=== PATIENT | female | born 1945 | race Two or more races ===

== ENCOUNTER 2017-04-15 13:28 | Inpatient (IN) | payer OTHER, MEDICAID ==
[~2017-04-15] VITALS: Ht 157.5 cm; Wt 83.0 kg
[2017-04-15 15:16] LABS: Potassium 3.9 mmol/L (3.5-5.1)
[2017-04-15 15:20] LABS: Albumin 3.2 g/dL (3.4-5.0); BUN/Creatinine Ratio 17.3; Basophils # (auto) 0 uL; Basophils % (auto) 0.5 % (0.0-2.0); CONDITION Y; Calcium 8.3 mg/dL (8.5-10.1); DEFINITIVE SEE PRINTOUT; Eosinophils # (auto) 0.1 uL; Hematocrit 31.8 % (36.0-46.0); Hemoglobin 10.1 g/dL (12.2-16.2); Lymphocytes # (auto) 1.6 uL; Lymphocytes % (auto) 20.3 % (10.0-50.0); Mean Corpuscular Hemoglobin 22.9 pg (28.0-32.0); Mean Corpuscular Hgb Conc. 31.9 g/dL (32.0-36.0); Mean Platelet Volume 11.4 fL (7.4-10.4); Monocytes # (auto) 0.6 uL; Monocytes % (auto) 7.7 % (0.0-12.0); Neutrophils # (auto) 5.4 uL; Neutrophils % (auto) 70.5 % (37.0-80.0); Platelet Count (auto) 269 10^3/uL (140-450); Red Cell Distribution Width 18.5 % (11.6-16.0); SUSPECT SEE PRINTOUT; White Blood Cell 7.7 10^3/uL (4.4-10.8)
[2017-04-15 15:23] LABS: Amylase 125 U/L (25-115); Bilirubin, Total 0.4 mg/dL (0.2-1.0); Total Protein 7.5 g/dL (6.4-8.2)
[2017-04-15] MEDS ORDERED: SODIUM CHLORIDE 0.9% 500 ML IVB ONE (17:42)
[2017-04-15 17:57] LABS: Giant Platelets Few; Hypochromia Moderate; Platelet Estimate Adequate
[2017-04-15 18:32] LABS: INR 0.95 (0.9-1.15); Partial Thromboplastin Time 26.1 sec (22.64-33.71); Prothrombin Time 10.3 sec (9.37-12.3)
[2017-04-15 18:39] LABS: Magnesium 2.5 mg/dL (1.6-2.6)
[2017-04-15 19:35] LABS: Urine Bilirubin Negative (Negative); Urine Blood Negative /uL (Negative); Urine Color Yellow (Yellow); Urine Glucose Normal (Normal); Urine Ketone 1+ (Negative); Urine Nitrite Negative (Negative); Urine RBC <1 /hpf (0 - 4); Urine Squamous Epithelial Cell FEW /hpf (<5); Urine Urobilinogen Normal (Negative)
[2017-04-15] MEDS ORDERED: ONDANSETRON HCL 4 MG/2 ML VIAL IV PRN (21:45)
[2017-04-15] MEDS ORDERED: MORPHINE SULF INJ 2 MG/ML SYRINGE 1ML IV PRN ×2 (21:45)
[2017-04-15] MEDS ORDERED: NITROGLYCERIN 0.4 MG SL TAB SL PRN (21:45)
[2017-04-15] MEDS ORDERED: LACTULOSE 20Gm/30ML SOLN PO PRN (21:45)
[2017-04-15] MEDS ORDERED: ATORVASTATIN 20 MG TAB PO SCH (22:00)
[2017-04-15] MEDS: FAMOTIDINE (10MG/ML) 2ML VL IV SCH (22:31)
[2017-04-16] VITALS (7 sets, daily range): BP systolic 138–164; BP diastolic 62–77
[2017-04-16 06:55] LABS: Basophils # (auto) 0 uL; Basophils % (auto) 0.5 % (0.0-2.0); CONDITION Y; DEFINITIVE SEE PRINTOUT; Eosinophils # (auto) 0.1 uL; Eosinophils % (auto) 1.5 % (0.0-7.0); Hemoglobin 9.9 g/dL (12.2-16.2); Lymphocytes # (auto) 1.9 uL; Lymphocytes % (auto) 32.3 % (10.0-50.0); Mean Corpuscular Hemoglobin 22.8 pg (28.0-32.0); Mean Corpuscular Hgb Conc. 31.9 g/dL (32.0-36.0); Mean Corpuscular Volume 71.4 fL (80.0-100.0); Mean Platelet Volume 11.5 fL (7.4-10.4); Monocytes # (auto) 0.5 uL; Monocytes % (auto) 8.6 % (0.0-12.0); Neutrophils # (auto) 3.3 uL; Neutrophils % (auto) 57.1 % (37.0-80.0); Platelet Count (auto) 250 10^3/uL (140-450); Red Cell Distribution Width 18.5 % (11.6-16.0); SUSPECT SEE PRINTOUT; White Blood Cell 5.8 10^3/uL (4.4-10.8)
[2017-04-16 07:29] LABS: Albumin 3.1 g/dL (3.4-5.0); BUN/Creatinine Ratio 17.7; Bilirubin, Total 0.6 mg/dL (0.2-1.0); Calcium 8.7 mg/dL (8.5-10.1); Potassium 3.6 mmol/L (3.5-5.1); Total Protein 7.2 g/dL (6.4-8.2)
[2017-04-16] MEDS: FERROUS SULFATE 325 MG TAB PO SCH ×2 (08:56→13:05)
[2017-04-16 09:35] LABS: Platelet Estimate Adequate
[2017-04-16 09:39] LABS: Hypochromia Moderate; Microcytosis Moderate; Ovalocytes FEW
[2017-04-16] MEDS ORDERED: ENOXAPARIN SOD 40 MG/0.4 ML SYRINGE SC SCH (10:00)
[2017-04-16] MEDS ORDERED: amLODIPine BESYLATE 5 MG TAB PO SCH (10:00)
[2017-04-16] MEDS ORDERED: LISINOPRIL 20 MG TAB PO SCH (10:00)
[2017-04-16] MEDS ORDERED: ASPirin 81 mg TAB PO ONE (10:15)
[2017-04-16] MEDS ORDERED: cloNIDine HCL 0.1 MG TAB PO PRN (10:15)
[2017-04-16] MEDS ORDERED: METOPROLOL SUCCINATE XL 50 MG TAB PO ONE (10:15)
[2017-04-16] MEDS: FAMOTIDINE (10MG/ML) 2ML VL IV SCH (10:39)
[2017-04-17] MEDS ORDERED: ASPirin 81 mg TAB PO SCH (10:00)
[2017-04-17] MEDS ORDERED: METOPROLOL SUCCINATE XL 50 MG TAB PO SCH (10:00)
== END 2017-04-16 16:25 | disposition home or self-care (01) | DRG 440 ==
LOC: ER 13:28 → TELE 13:29 → DOU IN ICU 04-16 05:03
PROVIDERS: ADMIT Family Medicine; ATTEND Internal Medicine Geriatric Medicine
DX: K85.30 Drug induced acute pancreatitis without necrosis or infection (principal); I10 Essential (primary) hypertension; E66.9 Obesity, unspecified; D64.9 Anemia, unspecified; T46.6X5A Adverse effect of antihyperlipidemic and antiarteriosclerotic drugs, initial encounter; T46.4X5A Adverse effect of angiotensin-converting-enzyme inhibitors, initial encounter; Y92.89 Other specified places as the place of occurrence of the external cause; Z90.49 Acquired absence of other specified parts of digestive tract; Z68.33 Body mass index [BMI] 33.0-33.9, adult
CPT/HCPCS: 36415; 70450; 71010; 74176; 80053; 80061; 81001; 82150; 82962; 83690; 83735; 84484; 85025; 85610; 85730; 87081; 93005; 94761; J3490

== ENCOUNTER 2017-11-13 19:06 | Inpatient (IN) | payer OTHER, MEDICAID ==
[~2017-11-13] VITALS: Ht 154.9 cm; Wt 81.4 kg
[2017-11-13 19:59] LABS: Basophils # (auto) 0.1 uL; Eosinophils # (auto) 0.1 uL; Hemoglobin 8.7 g/dL (12.2-16.2); Lymphocytes # (auto) 1.9 uL; Monocytes # (auto) 0.7 uL; Monocytes % (auto) 6.7 % (0.0-12.0); Nucleated Red Blood Cells % 0.1 %
[2017-11-13 20:05] LABS: Basophils % (auto) 0.7 % (0.0-2.0); Eosinophils % (auto) 1.4 % (0.0-7.0); Lymphocytes % (auto) 19.2 % (10.0-50.0); Neutrophils # (auto) 7.2 uL; Red Blood Cells 4.49 10^6/uL (4.0-5.20)
[2017-11-13 20:06] LABS: Hematocrit 29.1 % (36.0-46.0); Mean Corpuscular Hemoglobin 19.5 pg (28.0-32.0); Mean Corpuscular Volume 64.9 fL (80.0-100.0); Platelet Count (auto) 270 10^3/uL (140-450); Red Cell Distribution Width 19.4 % (11.8-14.3)
[2017-11-13 20:32] LABS: Alanine Aminotransferase 84 U/L (13-56); Albumin 3.3 g/dL (3.4-5.0); Alkaline Phosphatase 123 U/L (45-117); Anion Gap 9 (5-15); Aspartate Aminotransferase 120 U/L (15-37); BUN/Creatinine Ratio 28.4; Bilirubin, Total 0.2 mg/dL (0.2-1.0); Blood Urea Nitrogen 21 mg/dL (7-18); Calcium 8.5 mg/dL (8.5-10.1); Carbon Dioxide 24 mmol/L (21-32); Chloride 103 mmol/L (98-107); GFR African American 99 mL/min; GFR Non-African American 82 mL/min; Glucose 127 mg/dL (74-106); Magnesium 2.7 mg/dL (1.6-2.6); Potassium 3.9 mmol/L (3.5-5.1); Sodium 136 mmol/L (136-145); Total Protein 8.1 g/dL (6.4-8.2)
[2017-11-14] MEDS ORDERED: TEMAZEPAM 15 MG CAP PO PRN (06:45)
[2017-11-14] MEDS ORDERED: ONDANSETRON HCL 4 MG/2 ML VIAL IV PRN (06:45)
[2017-11-14] MEDS ORDERED: ACETAMINOPHEN 325 MG TAB PO PRN (06:45)
[2017-11-14] MEDS ORDERED: MECLIZINE HCL 25 MG TAB PO PRN (06:45)
[2017-11-14 09:00] VITALS: BP 140/52
[2017-11-14] MEDS ORDERED: FAMOTIDINE 20 MG TAB PO SCH (10:00)
[2017-11-14] MEDS ORDERED: METOPROLOL SUCCINATE XL 50 MG TAB PO SCH (10:00)
[2017-11-14] MEDS ORDERED: ENOXAPARIN SOD 40 MG/0.4 ML SYRINGE SC SCH (10:00)
[2017-11-14 11:53] VITALS: BP 145/67
[2017-11-14] MEDS ORDERED: AMLO5TAB2 PO (12:15)
[2017-11-14] MEDS ORDERED: METO25TA62 PO (12:15)
[2017-11-14] MEDS ORDERED: LISI-646 PO (12:15)
[2017-11-14 15:20] VITALS: BP 145/67
== END 2017-11-14 16:25 | disposition home or self-care (01) | DRG 305 ==
LOC: ER 19:06 → OVERFLOW 19:07 → EAST 11-14 09:00
PROVIDERS: ADMIT Nurse Practitioner; ATTEND Nurse Practitioner
DX: I10 Essential (primary) hypertension (principal); I67.2 Cerebral atherosclerosis; E78.5 Hyperlipidemia, unspecified; Z79.899 Other long term (current) drug therapy; Z88.6 Allergy status to analgesic agent; Z90.49 Acquired absence of other specified parts of digestive tract
CPT/HCPCS: 36415; 70450; 71045; 80053; 83735; 84484; 85025; 93005

== ENCOUNTER 2018-03-15 09:08 | Inpatient (IN) | payer OTHER, MEDICAID ==
[~2018-03-15] VITALS: Ht 160 cm; Wt 84.0 kg
[~2018-03-15 09:08] MED LIST: AMLO5TAB2 PO; LISI-646 PO; METO25TA62 PO
[2018-03-15] MEDS ORDERED: DOPamine 1600MCG/ML D5W 250 ML IV SCH (09:43)
[2018-03-15] MEDS ORDERED: SODIUM CHLORIDE 0.9% 1,000 ML IV ONE (09:43)
[2018-03-15] MEDS ORDERED: DOPamine 3200MCG/ML 250 ML IV SCH (09:51)
[2018-03-15 09:56] LABS: Eosinophils # (auto) 0.1 uL; Monocytes # (auto) 0.5 uL; Red Blood Cells 5.01 10^6/uL (4.0-5.20); White Blood Cell 8.2 10^3/uL (4.4-10.8)
[2018-03-15 09:58] LABS: Basophils # (auto) 0.1 uL; Basophils % (auto) 0.7 % (0.0-2.0); Hematocrit 33.9 % (36.0-46.0); Lymphocytes # (auto) 1.9 uL; Mean Corpuscular Hgb Conc. 29.7 g/dL (32.0-36.0); Mean Corpuscular Volume 67.5 fL (80.0-100.0); Monocytes % (auto) 6.4 % (0.0-12.0); Neutrophils # (auto) 5.6 uL; Neutrophils % (auto) 68.9 % (37.0-80.0); Platelet Count (auto) 211 10^3/uL (140-450)
[2018-03-15 10:03] LABS: Red Cell Distribution Width 24.2 % (11.8-14.3)
[2018-03-15 10:15] LABS: Alanine Aminotransferase 30 U/L (13-56); Albumin 3.2 g/dL (3.4-5.0); Alkaline Phosphatase 90 U/L (45-117); Anion Gap 8 (5-15); Aspartate Aminotransferase 34 U/L (15-37); Bilirubin, Total 0.4 mg/dL (0.2-1.0); Blood Urea Nitrogen 17 mg/dL (7-18); Calcium 8.1 mg/dL (8.5-10.1); Carbon Dioxide 23 mmol/L (21-32); Chloride 110 mmol/L (98-107); GFR African American 109 mL/min; GFR Non-African American 90 mL/min; Glucose 137 mg/dL (74-106); Potassium 3.6 mmol/L (3.5-5.1); Sodium 141 mmol/L (136-145); Total Protein 7.2 g/dL (6.4-8.2)
[2018-03-15] MEDS ORDERED: LIDOCAINE 2% (LOCAL ANESTH.) PF 5ml SDV ONE (10:42)
[2018-03-15] MEDS ORDERED: IOHEXOL 350 MG/ML 100ML IJ ONE (10:42)
[2018-03-15 11:04] LABS: INR 0.93 (0.9-1.15)
[2018-03-15 11:35] LABS: Urine Bacteria NONE SEEN /hpf (None Seen); Urine Blood Negative /uL (Negative); Urine Mucus FEW (None Seen); Urine Specific Gravity 1.009 (1.001-1.035); Urine WBC 1 /hpf (0 - 5)
[2018-03-15] MEDS ORDERED: MIDAZOLAM HCL 1MG/1ML-2 ML VIAL ONE (13:05)
[2018-03-15] MEDS ORDERED: fentaNYL CITRATE 100 MCG/2 ML VL ONE (13:05)
[2018-03-15] MEDS ORDERED: VANCOMYCIN HCL 1000 MG VL ONE (13:05)
[2018-03-15] MEDS ORDERED: VANCOMYCIN 1GM/250ML 250 ML IV ONE (13:06)
[2018-03-15] MEDS ORDERED: MORPHINE SULF INJ 2 MG/ML SYRINGE 1ML IV PRN (15:30)
[2018-03-15] MEDS ORDERED: NITROGLYCERIN 0.4 MG SL TAB SL PRN (15:30)
[2018-03-15 17:09] VITALS: BP 156/76
[2018-03-15 22:00] VITALS: BP 157/69
[2018-03-16] MEDS ORDERED: VANCOMYCIN 1GM/250ML 250 ML IV SCH ×2 (01:00→10:00)
[2018-03-16 05:00] VITALS: BP 174/70
[2018-03-16] MEDS ORDERED: LIDOCAINE 2% (LOCAL ANESTH.) PF 5ml SDV ONE (07:19)
[2018-03-16] MEDS ORDERED: IODIXANOL 320MG/ML 100ML BTL IV ONE (07:20)
[2018-03-16 08:57] VITALS: BP 162/76
[2018-03-16] MEDS ORDERED: cloNIDine HCL 0.1 MG TAB PO PRN (10:15)
[2018-03-16] MEDS ORDERED: METOPROLOL SUCCINATE XL 50 MG TAB PO ONE (10:15)
[2018-03-16] MEDS ORDERED: LISINOPRIL 20 MG TAB PO ONE (10:15)
[2018-03-16 10:41] VITALS: BP 158/74
[2018-03-17] MEDS ORDERED: LISINOPRIL 20 MG TAB PO SCH (10:00)
[2018-03-17] MEDS ORDERED: METOPROLOL SUCCINATE XL 50 MG TAB PO SCH (10:00)
== END 2018-03-16 11:28 | disposition home or self-care (01) | DRG 243 ==
LOC: EDBD 09:08 → ER 09:08 → EDUNIT# 09:08 → CATH 09:55 → TELE 10:55 → TELE-CENTR 16:46
PROVIDERS: ADMIT Internal Medicine; ATTEND Internal Medicine Geriatric Medicine
PROC: 0JH606Z Insertion of Pacemaker, Dual Chamber into Chest Subcutaneous Tissue and Fascia, Open Approach (ICD-10-PCS; principal; 2018-03-15)
PROC: 02H63JZ Insertion of Pacemaker Lead into Right Atrium, Percutaneous Approach (ICD-10-PCS; 2018-03-15)
PROC: 02HK3JZ Insertion of Pacemaker Lead into Right Ventricle, Percutaneous Approach (ICD-10-PCS; 2018-03-15)
DX: I49.5 Sick sinus syndrome (principal); I44.2 Atrioventricular block, complete; D64.9 Anemia, unspecified; I10 Essential (primary) hypertension; I45.10 Unspecified right bundle-branch block; E78.5 Hyperlipidemia, unspecified; I70.0 Atherosclerosis of aorta; Z88.5 Allergy status to narcotic agent; Z83.3 Family history of diabetes mellitus; Z82.3 Family history of stroke; Z88.1 Allergy status to other antibiotic agents
CPT/HCPCS: 36415; 70450; 71045; 72125; 80053; 81001; 83880; 84484; 85025; 85610; 85730; 93306; 99152; 99291; C1785; J1265; J2250; Q9967

== ENCOUNTER → 2018-05-31 | Outpatient (CLI) | payer MEDICARE, MEDICAID ==
[~2018-05-31] MED LIST changes: +ADENOSINE 69 MG in GIVE UN-DILUTED 0 ML IV ONE; +ADENOSINE 90 MG/30 ML INJ IV ONE; +AMLO5TAB13 PO; -AMLO5TAB2 PO
== END | disposition home or self-care (01) ==
LOC: Rad HDHVI 09:07
PROVIDERS: ATTEND Internal Medicine
DX: I49.5 Sick sinus syndrome (principal); I10 Essential (primary) hypertension; Z95.0 Presence of cardiac pacemaker
CPT/HCPCS: 78452; 93005; 96374; 96375; A9500; J0153

== ENCOUNTER → 2018-07-27 | Outpatient (CLI) | payer MEDICARE, MEDICAID ==
[~2018-07-27] MED LIST changes: -ADENOSINE 69 MG in GIVE UN-DILUTED 0 ML IV ONE; -ADENOSINE 90 MG/30 ML INJ IV ONE
== END | disposition home or self-care (01) ==
LOC: Rad HDHVI 13:57
PROVIDERS: ATTEND Internal Medicine
DX: R42 Dizziness and giddiness (principal)
CPT/HCPCS: 93880

== ENCOUNTER → 2019-02-14 | Outpatient (CLI) | payer MEDICARE, MEDICAID ==
[~2019-02-14] MED LIST changes: -AMLO5TAB13 PO; +AMLO5TAB15 PO
[2019-02-14 12:29] LABS: Urine Blood Negative /uL (Negative); Urine Specific Gravity 1.017 (1.001-1.035)
[2019-02-14 13:05] LABS: Basophils # (auto) 0 uL; Basophils % (auto) 0.7 % (0.0-2.0); Eosinophils # (auto) 0.1 uL; Eosinophils % (auto) 1.3 % (0.0-7.0); Hemoglobin 12.3 g/dL (12.2-16.2); Lymphocytes # (auto) 1.2 uL; Lymphocytes % (auto) 24.9 % (10.0-50.0); Mean Corpuscular Hemoglobin 27.8 pg (28.0-32.0); Mean Corpuscular Hgb Conc. 33.1 g/dL (32.0-36.0); Mean Corpuscular Volume 83.9 fL (80.0-100.0); Monocytes # (auto) 0.4 uL; Monocytes % (auto) 8.3 % (0.0-12.0); Neutrophils # (auto) 3.2 uL; Neutrophils % (auto) 64.8 % (37.0-80.0); Platelet Count (auto) 189 10^3/uL (140-450); Red Blood Cells 4.41 10^6/uL (4.0-5.20); Red Cell Distribution Width 17.9 % (11.8-14.3)
[2019-02-14 13:17] LABS: Free T4 (Free Thyroxine) 0.92 ng/dL (0.89-1.76)
[2019-02-14 13:29] LABS: Albumin 3.4 g/dL (3.4-5.0); BUN/Creatinine Ratio 21.9; Bilirubin, Total 0.4 mg/dL (0.2-1.0); Calcium 9.1 mg/dL (8.5-10.1); Total Protein 7.4 g/dL (6.4-8.2)
== END | disposition home or self-care (01) ==
LOC: LAB 08:44
PROVIDERS: ATTEND Internal Medicine
DX: N39.0 Urinary tract infection, site not specified (principal); E03.9 Hypothyroidism, unspecified; E55.9 Vitamin D deficiency, unspecified; D51.9 Vitamin B12 deficiency anemia, unspecified; Z79.899 Other long term (current) drug therapy
CPT/HCPCS: 36415; 80053; 80061; 81003; 82306; 82607; 83036; 84439; 84443; 85025

== ENCOUNTER → 2019-03-28 | Outpatient (CLI) | payer MEDICARE, MEDICAID ==
[~2019-03-28] MED LIST changes: +AMLO5TAB13 PO; -AMLO5TAB15 PO
[2019-03-28 16:33] LABS: Albumin 3.3 g/dL (3.4-5.0); Calcium 8.9 mg/dL (8.5-10.1)
[2019-03-28 16:37] LABS: Bilirubin, Total 0.3 mg/dL (0.2-1.0); Total Protein 7.6 g/dL (6.4-8.2)
== END | disposition home or self-care (01) ==
LOC: LAB 13:08
PROVIDERS: ATTEND Internal Medicine
DX: I10 Essential (primary) hypertension (principal)
CPT/HCPCS: 36415; 80053

== ENCOUNTER → 2020-02-24 | Outpatient (CLI) | payer MEDICARE, MEDICAID ==
[~2020-02-24] MED LIST changes: -AMLO5TAB13 PO; +AMLO5TAB15 PO; -METO25TA62 PO; +METO25TA93 PO
== END | disposition home or self-care (01) ==
LOC: Rad HDHVI 15:05
PROVIDERS: ATTEND Internal Medicine
DX: I08.1 Rheumatic disorders of both mitral and tricuspid valves (principal); E78.5 Hyperlipidemia, unspecified; I10 Essential (primary) hypertension; Z95.0 Presence of cardiac pacemaker
CPT/HCPCS: 93306

== ENCOUNTER → 2020-02-29 | Outpatient (CLI) | payer MEDICARE, MEDICAID ==
[2020-02-29 12:25] LABS: Eosinophils # (auto) 0.1 10 ^3/uL (0-0.8); Hemoglobin 10.3 g/dL (12.2-16.2); Monocytes # (auto) 0.4 10 ^3/uL (0-1.3)
[2020-02-29 12:29] LABS: Basophils # (auto) 0 10 ^3/uL (0-0.2); Basophils % (auto) 0.9 % (0.0-2.0); Eosinophils % (auto) 1.9 % (0.0-7.0); Hematocrit 33.6 % (36.0-46.0); Lymphocytes # (auto) 1.4 10 ^3/uL (0.4-5.4); Lymphocytes % (auto) 28.5 % (10.0-50.0); Mean Corpuscular Hemoglobin 23.4 pg (28.0-32.0); Mean Corpuscular Hgb Conc. 30.6 g/dL (32.0-36.0); Mean Corpuscular Volume 76.5 fL (80.0-100.0); Monocytes % (auto) 8.1 % (0.0-12.0); Neutrophils # (auto) 2.9 10 ^3/uL (1.6-8.6); Neutrophils % (auto) 60.6 % (37.0-80.0); Nucleated Red Blood Cells % 0.2 %; Platelet Count (auto) 192 10^3/uL (140-450); Red Cell Distribution Width 19.2 % (11.8-14.3); White Blood Cell 4.8 10^3/uL (4.4-10.8)
[2020-02-29 12:31] LABS: Urine Blood TRACE /uL (Negative)
[2020-02-29 12:53] LABS: Free T4 (Free Thyroxine) 1.08 ng/dL (0.89-1.76)
[2020-02-29 12:55] LABS: Albumin 3.4 g/dL (3.4-5.0); BUN/Creatinine Ratio 18.4; Bilirubin, Total 0.3 mg/dL (0.2-1.0); Calcium 9.1 mg/dL (8.5-10.1); Total Protein 7.6 g/dL (6.4-8.2)
== END | disposition home or self-care (01) ==
LOC: LAB 08:08
PROVIDERS: ATTEND Internal Medicine
DX: E03.9 Hypothyroidism, unspecified (principal); K90.9 Intestinal malabsorption, unspecified; N39.0 Urinary tract infection, site not specified; D51.9 Vitamin B12 deficiency anemia, unspecified; Z79.899 Other long term (current) drug therapy; Z00.00 Encounter for general adult medical examination without abnormal findings
CPT/HCPCS: 36415; 80053; 80061; 81003; 82306; 82607; 83036; 84439; 84443; 85025

== ENCOUNTER → 2020-03-05 | Outpatient (CLI) | payer MEDICARE, MEDICAID ==
[2020-03-05 12:01] LABS: Urine Bacteria NONE SEEN /hpf (None Seen); Urine Blood TRACE /uL (Negative); Urine Hyaline Cast FEW /lpf (0 - 2); Urine Mucus FEW (None Seen); Urine Specific Gravity 1.022 (1.001-1.035); Urine WBC 1 /hpf (0 - 5)
== END | disposition home or self-care (01) ==
LOC: LAB 08:14
PROVIDERS: ATTEND Internal Medicine
DX: N39.0 Urinary tract infection, site not specified (principal)
CPT/HCPCS: 81001

== ENCOUNTER → 2020-03-19 | Outpatient (CLI) | payer MEDICARE, MEDICAID ==
[~2020-03-19] VITALS: Ht 160 cm; Wt 83.0 kg
[~2020-03-19] MED LIST changes: +ADENOSINE 70 MG in GIVE UN-DILUTED 0 ML IV ONE; +ADENOSINE 90 MG/30 ML INJ IV ONE; +HYDR12.56 PO; +IRBE150T49 PO; +METO-169 PO
== END | disposition home or self-care (01) ==
LOC: Rad HDHVI 12:52
PROVIDERS: ATTEND Internal Medicine
DX: I10 Essential (primary) hypertension (principal); I25.2 Old myocardial infarction; E78.00 Pure hypercholesterolemia, unspecified; Z95.0 Presence of cardiac pacemaker; Z82.49 Family history of ischemic heart disease and other diseases of the circulatory system
CPT/HCPCS: 78452; 93005; 96374; 96375; A9500; J0153

== ENCOUNTER → 2020-04-24 | Outpatient (CLI) | payer MEDICARE, MEDICAID ==
[~2020-04-24] MED LIST changes: -ADENOSINE 70 MG in GIVE UN-DILUTED 0 ML IV ONE; -ADENOSINE 90 MG/30 ML INJ IV ONE; +IOHEXOL 350 MG/ML 100ML IJ ONE; +READI-CAT 2 (BARIUM SULF)(VANILLA SMOOTHIE) 450ML ONE
[2020-04-24 10:55] VITALS: BP 164/59
--- NOTE | 2020-04-24 10:55 | NUR ---
CLINIC PT ARRIVED TO THE [facility]IN[facility] FROM BACK OFFICE WITH MD ORDERS FOR CT ABD/PEL IV AND ORAL., FOR OCCASIONAL ABD PAIN. PT IS FAROESE SPEAKING. 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 A/OX4, AMBULATORY. BREATHING IS EVEN AND UNLABORED.
--- NOTE | 2020-04-24 11:08 | NUR ---
IV insertion IV access obtained, via clean sterile technique by inserting 22 gauge catheter at after 3 attempt(s). IV secured properly. No trauma to site. Patient tolerated procedure well. LABS DRAWN AND SENT NOTE 2 UNSUCCESSFUL TRIES BY PRISCILA CALLEJAS INSERTED BY ISADORA MONTES
--- NOTE | 2020-04-24 12:20 | NUR ---
IV removal IV DC'd with sterile technique, catheter fully intact. Pressure dressing applied to site. Patient tolerated procedure well. Discharged with aftercare instructions per MD. NOTE: REMOVED BY PRISCILA CALLEJAS
[2020-04-24 12:26] VITALS: BP 163/54
--- NOTE | 2020-04-24 12:26 | NUR ---
Discharge Instructions See e-MAR for any mediations given with this visit. Patient education given on disease process. Patient verbalized understanding. Previous labs reviewed. Patient discharged in stable condition with after care instructions and follow up appointment. PT TOLD TO INCREASE FLUID INTAKE FOR THE NEXT 24HRS.
== END | disposition home or self-care (01) ==
LOC: Rad HDHVI 10:35
PROVIDERS: ATTEND Internal Medicine
DX: K57.30 Diverticulosis of large intestine without perforation or abscess without bleeding (principal); R94.4 Abnormal results of kidney function studies; R10.9 Unspecified abdominal pain; K44.9 Diaphragmatic hernia without obstruction or gangrene; K40.30 Unilateral inguinal hernia, with obstruction, without gangrene, not specified as recurrent; I70.8 Atherosclerosis of other arteries
CPT/HCPCS: 36415; 74177; 82565; G0463; Q9967

== ENCOUNTER 2020-05-31 08:32 | Day surgery (SDC) | payer MEDICARE, MEDICAID ==
[2020-05-25 11:10] LABS: Basophils # (auto) 0 10 ^3/uL (0-0.2); Basophils % (auto) 0.9 % (0.0-2.0); Eosinophils # (auto) 0.1 10 ^3/uL (0-0.8); Hematocrit 34.6 % (36.0-46.0); Monocytes # (auto) 0.4 10 ^3/uL (0-1.3); Neutrophils # (auto) 2.5 10 ^3/uL (1.6-8.6); Nucleated Red Blood Cells % 0.1 %; Red Cell Distribution Width 18.4 % (11.8-14.3)
[2020-05-25 11:11] LABS: Eosinophils % (auto) 1.3 % (0.0-7.0); Hemoglobin 10.5 g/dL (12.2-16.2); Lymphocytes # (auto) 1.5 10 ^3/uL (0.4-5.4); Lymphocytes % (auto) 32.5 % (10.0-50.0); Mean Corpuscular Hemoglobin 21.9 pg (28.0-32.0); Mean Corpuscular Hgb Conc. 30.5 g/dL (32.0-36.0); Monocytes % (auto) 8.5 % (0.0-12.0); Neutrophils % (auto) 56.8 % (37.0-80.0); Platelet Count (auto) 234 10^3/uL (140-450); White Blood Cell 4.5 10^3/uL (4.4-10.8)
[2020-05-25 11:13] LABS: INR 0.94 (0.9-1.15); Partial Thromboplastin Time 21.1 sec (23.0-31.2)
[~2020-05-31] VITALS: Ht 157.5 cm; Wt 83.5 kg
[~2020-05-31 08:32] MED LIST changes: -AMLO5TAB15 PO; -IOHEXOL 350 MG/ML 100ML IJ ONE; -LISI-646 PO; -METO25TA93 PO; -READI-CAT 2 (BARIUM SULF)(VANILLA SMOOTHIE) 450ML ONE
[2020-05-31] MEDS ORDERED: LIDOCAINE VISCOUS 2% 15ML UD ONE (09:17)
[2020-05-31] MEDS ORDERED: NALOXONE HCL 0.4 MG/ML VIAL ONE (09:17)
[2020-05-31] MEDS ORDERED: FLUMAZENIL 0.1 MG/ML INJ 10ML MDV IV ONE (09:17)
[2020-05-31] MEDS ORDERED: SODIUM CHLORIDE LOCK 10 ML ONE (09:17)
[2020-05-31] MEDS ORDERED: MIDAZOLAM HCL 5 MG/ML-1ML VIAL ONE (09:17)
[2020-05-31] MEDS ORDERED: diphenhdrAMINE HCL 50 MG/1 ML VL ONE (09:18)
[2020-05-31] MEDS ORDERED: fentaNYL CITRATE 100 MCG/2 ML VL ONE (09:18)
[2020-05-31 10:31] VITALS: BP 125/71
== END 2020-05-31 10:43 | disposition home or self-care (01) ==
LOC: GI 08:32
PROVIDERS: ATTEND Internal Medicine Gastroenterology
DX: R10.11 Right upper quadrant pain (principal); K29.50 Unspecified chronic gastritis without bleeding; K29.80 Duodenitis without bleeding; K44.9 Diaphragmatic hernia without obstruction or gangrene; E66.9 Obesity, unspecified; Z79.899 Other long term (current) drug therapy; Z88.5 Allergy status to narcotic agent; Z96.89 Presence of other specified functional implants; Z20.828 Contact with and (suspected) exposure to other viral communicable diseases; Z88.1 Allergy status to other antibiotic agents; Z68.33 Body mass index [BMI] 33.0-33.9, adult
CPT/HCPCS: 36415; 43239; 85025; 85610; 85730; 88305; 88342; J2250; J3010; J7030; U0003

== ENCOUNTER → 2020-10-03 | Outpatient (CLI) | payer MEDICARE, MEDICAID ==
[2020-10-03 11:11] LABS: Basophils # (auto) 0 10 ^3/uL (0-0.2); Eosinophils # (auto) 0.1 10 ^3/uL (0-0.8); Mean Corpuscular Hemoglobin 19.9 pg (28.0-32.0); Monocytes # (auto) 0.4 10 ^3/uL (0-1.3); Neutrophils # (auto) 2.6 10 ^3/uL (1.6-8.6); Nucleated Red Blood Cells % 0.1 %; Urine Blood Negative /uL (Negative); Urine Specific Gravity 1.024 (1.001-1.035)
[2020-10-03 11:17] LABS: Basophils % (auto) 0.7 % (0.0-2.0); Eosinophils % (auto) 1.6 % (0.0-7.0); Hematocrit 29.5 % (36.0-46.0); Hemoglobin 8.9 g/dL (12.2-16.2); Lymphocytes # (auto) 1.4 10 ^3/uL (0.4-5.4); Lymphocytes % (auto) 30.9 % (10.0-50.0); Mean Corpuscular Hgb Conc. 30.2 g/dL (32.0-36.0); Mean Corpuscular Volume 65.8 fL (80.0-100.0); Monocytes % (auto) 8.9 % (0.0-12.0); Neutrophils % (auto) 57.9 % (37.0-80.0); Platelet Count (auto) 231 10^3/uL (140-450); Red Blood Cells 4.48 10^6/uL (4.0-5.20); Red Cell Distribution Width 19.9 % (11.8-14.3); White Blood Cell 4.6 10^3/uL (4.4-10.8)
[2020-10-03 11:57] LABS: Free T4 (Free Thyroxine) 1.01 ng/dL (0.89-1.76)
[2020-10-03 11:59] LABS: Albumin 3.3 g/dL (3.4-5.0); BUN/Creatinine Ratio 20.8; Bilirubin, Total 0.5 mg/dL (0.2-1.0); Calcium 8.9 mg/dL (8.5-10.1); Total Protein 7.9 g/dL (6.4-8.2)
== END | disposition home or self-care (01) ==
LOC: LAB 08:39
PROVIDERS: ATTEND Internal Medicine
DX: D51.3 Other dietary vitamin B12 deficiency anemia (principal); I10 Essential (primary) hypertension; E11.9 Type 2 diabetes mellitus without complications; E55.9 Vitamin D deficiency, unspecified; D64.9 Anemia, unspecified; R00.2 Palpitations; R53.1 Weakness; R30.0 Dysuria
CPT/HCPCS: 36415; 80053; 80061; 81003; 82306; 82607; 83036; 84439; 84443; 85025; 87086

== ENCOUNTER → 2020-10-16 | Outpatient (CLI) | payer MEDICARE, MEDICAID ==
[~2020-10-16] VITALS: Ht 160 cm; Wt 79.4 kg
[~2020-10-16] MED LIST changes: +ADENOSINE 67 MG in GIVE UN-DILUTED 0 ML IV ONE; +ADENOSINE 90 MG/30 ML INJ IV ONE
== END | disposition home or self-care (01) ==
LOC: Rad HDHVI 09:40
PROVIDERS: ATTEND Internal Medicine
DX: I10 Essential (primary) hypertension (principal); E78.00 Pure hypercholesterolemia, unspecified; Z95.0 Presence of cardiac pacemaker
CPT/HCPCS: 78452; 93005; 96374; 96375; A9500; J0153

== ENCOUNTER → 2021-03-22 | Outpatient (CLI) | payer MEDICARE, MEDICAID ==
[~2021-03-22] MED LIST changes: -ADENOSINE 67 MG in GIVE UN-DILUTED 0 ML IV ONE; -ADENOSINE 90 MG/30 ML INJ IV ONE; -METO-169 PO; +METO-289 PO
== END | disposition home or self-care (01) ==
LOC: Rad HDHVI 09:33
PROVIDERS: ATTEND Internal Medicine Cardiovascular Disease
DX: M48.02 Spinal stenosis, cervical region (principal); M25.78 Osteophyte, vertebrae; M54.2 Cervicalgia
CPT/HCPCS: 72040

== ENCOUNTER 2022-06-26 08:59 | Day surgery (SDC) | payer MEDICARE, MEDICAID ==
[2022-06-24 12:38] LABS: Basophils # (auto) 0.1 10 ^3/uL (0-0.2); Eosinophils # (auto) 0.1 10 ^3/uL (0-0.8); Lymphocytes # (auto) 1.3 10 ^3/uL (0.4-5.4); Lymphocytes % (auto) 26.1 % (10.0-50.0); Monocytes # (auto) 0.4 10 ^3/uL (0-1.3); Neutrophils # (auto) 3.1 10 ^3/uL (1.6-8.6); White Blood Cell 4.9 10^3/uL (4.4-10.8)
[2022-06-24 12:40] LABS: Basophils % (auto) 1.2 % (0.0-2.0); Eosinophils % (auto) 1.8 % (0.0-7.0); Hematocrit 36.8 % (36.0-46.0); Hemoglobin 11.5 g/dL (12.2-16.2); Mean Corpuscular Hemoglobin 23.1 pg (28.0-32.0); Mean Corpuscular Hgb Conc. 31.1 g/dL (32.0-36.0); Mean Corpuscular Volume 74.3 fL (80.0-100.0); Monocytes % (auto) 8.2 % (0.0-12.0); Neutrophils % (auto) 62.7 % (37.0-80.0); Red Blood Cells 4.96 10^6/uL (4.0-5.20)
[2022-06-24 12:53] LABS: INR 0.98 (0.9-1.15); Partial Thromboplastin Time 26.4 sec (24.6-33.4)
[2022-06-24 13:05] LABS: Red Cell Distribution Width 33.6 % (11.8-14.3)
[2022-06-24 13:09] LABS: Urine Bacteria NONE SEEN /hpf (None Seen); Urine Blood Negative /uL (Negative); Urine Mucus FEW (None Seen); Urine Specific Gravity 1.026 (1.001-1.035); Urine WBC 1 /hpf (0 - 5)
[2022-06-24 13:13] LABS: Albumin 3.8 g/dL (3.4-5.0); Calcium 9.3 mg/dL (8.5-10.1); Potassium 4.3 mmol/L (3.5-5.1)
[2022-06-24 13:17] LABS: BUN/Creatinine Ratio 17.6; Bilirubin, Total 0.4 mg/dL (0.2-1.0); Total Protein 7.6 g/dL (6.4-8.2)
[~2022-06-26] VITALS: Ht 157.5 cm; Wt 79.4 kg
[~2022-06-26 08:59] MED LIST changes: -IRBE150T49 PO
[2022-06-26] MEDS ORDERED: LIDOCAINE VISCOUS 2% 15ML UD ONE (09:13)
[2022-06-26] MEDS ORDERED: NALOXONE HCL 0.4 MG/ML VIAL ONE (09:13)
[2022-06-26] MEDS ORDERED: SODIUM CHLORIDE LOCK 10 ML ONE (09:13)
[2022-06-26] MEDS ORDERED: EPINEPHrine HCL 1 MG/1 ML AMP ONE (09:13)
[2022-06-26] MEDS ORDERED: FLUMAZENIL 0.1 MG/ML INJ 10ML MDV IV ONE (09:13)
[2022-06-26] MEDS ORDERED: diphenhdrAMINE HCL 50 MG/1 ML VL ONE (09:14)
[2022-06-26] MEDS: fentaNYL CITRATE 100 MCG/2 ML VL ONE ×3 (09:32→09:45)
[2022-06-26] MEDS: MIDAZOLAM HCL 5 MG/ML-1ML VIAL ONE ×3 (09:32→09:45)
[2022-06-26 10:47] VITALS: BP 164/63
== END 2022-06-26 11:30 | disposition home or self-care (01) ==
LOC: GI 08:59
PROVIDERS: ATTEND Internal Medicine Gastroenterology
DX: R10.9 Unspecified abdominal pain (principal); K57.30 Diverticulosis of large intestine without perforation or abscess without bleeding; K64.8 Other hemorrhoids; K44.9 Diaphragmatic hernia without obstruction or gangrene; K29.50 Unspecified chronic gastritis without bleeding; D64.9 Anemia, unspecified; I10 Essential (primary) hypertension; E78.5 Hyperlipidemia, unspecified; Z79.899 Other long term (current) drug therapy; Z20.822 Contact with and (suspected) exposure to COVID-19
CPT/HCPCS: 36415; 43239; 45378; 80053; 81001; 85025; 85610; 85730; 88305; 88342; J0171; J1200; J2250; J2310; J3010; J7030; U0003; 99152

== ENCOUNTER → 2022-11-21 | Outpatient (CLI) | payer MEDICARE, MEDICAID ==
[2022-11-21 11:00] VITALS: BP 171/58
[2022-11-21 11:19] VITALS: BP 170/49
== END | disposition home or self-care (01) ==
LOC: Rad HDHVI 10:58
PROVIDERS: ATTEND Internal Medicine
DX: K44.9 Diaphragmatic hernia without obstruction or gangrene (principal); R10.9 Unspecified abdominal pain
CPT/HCPCS: 74177; G0463; Q9967

== ENCOUNTER → 2023-01-20 | Outpatient (CLI) | payer MEDICARE, MEDICAID | END | disposition home or self-care (01) | LOC: Rad HDHVI 13:04 | PROVIDERS: ATTEND Internal Medicine Cardiovascular Disease | DX: I08.3 Combined rheumatic disorders of mitral, aortic and tricuspid valves (principal); E78.5 Hyperlipidemia, unspecified; I11.9 Hypertensive heart disease without heart failure | CPT/HCPCS: 93306 ==

== ENCOUNTER → 2023-09-28 | Outpatient (CLI) | payer MEDICARE, MEDICAID ==
[~2023-09-28] VITALS: Ht 154.9 cm; Wt 73.5 kg
[~2023-09-28] MED LIST changes: +ADENOSINE 62 MG in GIVE UN-DILUTED 0 ML IV ONE; +ADENOSINE 90 MG/30 ML INJ IV ONE; +FER325T PO; -HYDR12.56 PO; +HYDR12.59 PO; +NITR-87 PO
== END | disposition home or self-care (01) ==
LOC: Rad HDHVI 13:42
PROVIDERS: ATTEND Internal Medicine Cardiovascular Disease
DX: Z01.810 Encounter for preprocedural cardiovascular examination (principal); I49.5 Sick sinus syndrome; I10 Essential (primary) hypertension; E11.9 Type 2 diabetes mellitus without complications; E78.00 Pure hypercholesterolemia, unspecified; R42 Dizziness and giddiness; R06.02 Shortness of breath; Z95.0 Presence of cardiac pacemaker; Z82.49 Family history of ischemic heart disease and other diseases of the circulatory system
CPT/HCPCS: 78452; 93005; 96374; 96375; A9500; J0153

== ENCOUNTER → 2023-10-07 | Outpatient (CLI) | payer MEDICARE, MEDICAID ==
[~2023-10-07] MED LIST changes: -ADENOSINE 62 MG in GIVE UN-DILUTED 0 ML IV ONE; -ADENOSINE 90 MG/30 ML INJ IV ONE
== END | disposition home or self-care (01) ==
LOC: Rad HDHVI 14:42
PROVIDERS: ATTEND Internal Medicine Cardiovascular Disease
DX: I70.203 Unspecified atherosclerosis of native arteries of extremities, bilateral legs (principal); I65.23 Occlusion and stenosis of bilateral carotid arteries; R07.89 Other chest pain; M79.604 Pain in right leg
CPT/HCPCS: 93880; 93925

== ENCOUNTER → 2024-10-03 | Outpatient (CLI) | payer MEDICARE, MEDICAID ==
[2024-10-03 10:00] LABS: Eosinophils # (auto) 0.1 10 ^3/uL (0-0.8); Lymphocytes # (auto) 1.3 10 ^3/uL (0.4-5.4); Monocytes # (auto) 0.4 10 ^3/uL (0-1.3); Monocytes % (auto) 9.3 % (0.0-12.0); Neutrophils # (auto) 2.7 10 ^3/uL (1.6-8.6); Red Cell Distribution Width 16.9 % (11.8-14.3); White Blood Cell 4.5 10^3/uL (4.4-10.8)
[2024-10-03 10:02] LABS: Basophils # (auto) 0 10 ^3/uL (0-0.2); Basophils % (auto) 1.1 % (0.0-2.0); Eosinophils % (auto) 1.4 % (0.0-7.0); Hematocrit 30.6 % (36.0-46.0); Hemoglobin 9.5 g/dL (12.2-16.2); Lymphocytes % (auto) 27.9 % (10.0-50.0); Mean Corpuscular Hemoglobin 24.2 pg (28.0-32.0); Mean Corpuscular Hgb Conc. 31.2 g/dL (32.0-36.0); Mean Corpuscular Volume 77.5 fL (80.0-100.0); Neutrophils % (auto) 60.3 % (37.0-80.0); Platelet Count (auto) 220 10^3/uL (140-450); Red Blood Cells 3.94 10^6/uL (4.0-5.20)
[2024-10-03 10:53] LABS: Alanine Aminotransferase 12 U/L (7-40); Albumin 4.3 g/dL (3.2-4.8); Alkaline Phosphatase 97 U/L (46-116); Anion Gap 7 (5-15); Aspartate Aminotransferase 18 U/L (13-40); BUN/Creatinine Ratio 20.2 (10.0-20.0); Bilirubin, Total 0.5 mg/dL (0.2-1.0); Blood Urea Nitrogen 17 mg/dL (9-23); Calcium 9.7 mg/dL (8.7-10.4); Carbon Dioxide 27 mmol/L (20-31); Cholesterol 194 mg/dL (< 200); Glucose 104 mg/dL (74-106); Sodium 142 mmol/L (136-145); Total Protein 6.9 g/dL (5.7-8.2); Triglycerides 97 mg/dL (< 150)
[2024-10-03 10:57] LABS: Chloride 108 mmol/L (98-107); HDL Cholesterol 72 mg/dL (40-59); LDL Cholesterol 112 mg/dL (< 100); Potassium 3.4 mmol/L (3.5-5.1)
[2024-10-03 11:07] LABS: Free T3 2.75 pg/mL (2.3-4.2); Free T4 (Free Thyroxine) 1.06 ng/dL (0.89-1.76)
== END | disposition home or self-care (01) ==
LOC: LAB 09:31
PROVIDERS: ATTEND Internal Medicine
DX: I10 Essential (primary) hypertension (principal); E78.5 Hyperlipidemia, unspecified
CPT/HCPCS: 36415; 80053; 80061; 84439; 84443; 84481; 85025

== ENCOUNTER 2024-10-05 14:45 | Inpatient (IN) | payer MEDICARE, MEDICAID ==
[~2024-10-05] VITALS: Ht 154.9 cm; Wt 72.8 kg
--- NOTE | 2024-10-05 15:24 | ED.PDOC ---
HPI (NEURO) HPI Comments 79 y/o F presents to the ED for CC of dizziness. Patient states, that she came to [facility] for a routine check-up with her PCP when she was instructed to follow up with the ED for a further evaluation due to her elevated blood pressure. Patient relays, that she has been experiencing a headache for x4day; with associated symptoms of dizziness which started today. Patient denies social history. Patient denies weakness, numbness, tremors, nausea, or vomiting. No other symptoms or modifying factors at this time. Chief Complaint: Dizziness Time Seen by MD: 15:00 Primary Care Provider: Wesley Mathews Notes: Nurses Notes, Medications, Allergies Information Source: Patient Mode of Arrival: Ambulatory Severity: Mild Dizziness/Weakness Severity: Does not affect activitie Headache Severity: Moderate Timing: Days Duration: Since onset Prehospital treatment: None Onset: At rest Circumstances: Spontaneous Symptoms: None History of: None Modifying factors: Nothing Associated Signs and Symptoms: Headache Past Medical History PAST MEDICAL HISTORY: DM, HTN Surgical History: Cholecystectomy, Pacemaker [employer] PSYCHOLOGIST History: Denies all [employer] PSYCHOLOGIST Hx Family History Family History: Unknown Social History Smoker: Non-Smoker Alcohol: Denies ETOH Use Drugs: Denies Drug Use Lives In: Home Constitutional: denies: chills, diaphoresis, fatigue, fever, malaise, sweats, weakness, others EENTM: denies: blurred vision, double vision, ear bleeding, ear discharge, ear drainage, ear pain, ear ringing, eye pain, eye redness, hearing loss, mouth pain, mouth swelling, nasal discharge, nose bleeding, nose congestion, nose pain, photophobia, tearing, throat pain, throat swelling, voice changes, others Respiratory: denies: cough, hemoptysis, orthopnea, SOB at rest, shortness of breath, SOB with excertion, stridor, wheezing, others Cardiovascular: denies: chest pain, dizzy spells, diaphoresis, Dyspnea on exertion, edema, irregular heart beat, left arm pain, lightheadedness, palp itations, PND, syncope, others Gastrointestinal: denies: abdomen distended, abdominal pain, blood streaked bowels, constipated, diarrhea, dysphagia, difficulty swallowing, hematemesis, melena, nausea, poor appetite, poor fluid intake, rectal bleeding, rectal pain, vomiting, others Genitourinary: denies: abnormal vagina bleeding, burning, dyspareunia, dysuria, flank pain, frequency, hematuria, incontinence, pain, , vagina discharge, urgency, others Neurological: reports: dizziness, headache; denies: fainting, left sided numbness, left sided weakness, numbness, paresthesia, pre-existing deficit, right sided numbness, right sided weakness, seizure, speech problems, tingling, tremors, weakness, others Musculoskeletal: denies: back pain, gout, joint pain, joint swelling, muscle pain, muscle stiffness, neck pain, others Integumetry: denies: bruises, change in color, change in hair/nails, dryness, laceration, lesions, lumps, rash, wounds, others Allergic/Immunocompromised: denies: Difficulty Healing, Frequent Infections, Hives, Itching, others Hematologic/Lymphatic: denies: anemia, blood clots, easy bleeding, easy bruising, swollen glands, others Endocrine: denies: excessive hunger, excessive sweating, excessive thirst, excessive urination, flushing, intolerance to cold, intolerance to heat, unex plained weight gain, unexplained weight loss, others Psychiatric: denies: anxiety, bipolar disorder, depression, hopeless, panic disorder, schizophrenia, sleepless, suicidal, others All Other Systems: Reviewed and Negative Physical Exam General Appearance: Moderate Distress HEENT: Normal ENT Inspection, Pharynx Normal, TMs Normal Neck: Full Range of Motion, Non-Tender, Normal, Normal Inspection Respiratory: Chest Non-Tender, Lungs Clear, No Accessory Muscle Use, No Respiratory Distress, Normal Breath Sounds Cardiovascular: No Edema, No JVD, No Murmur, No Gallop, Normal Peripheral Pulses, Regular Rate/Rhythm Breast Exam: Deferred Gastrointestinal: No Organomegaly, Non Tender, No Pulsatile Mass, Normal Bowel Sounds, Soft Genitalia: Deferred Pelvic: Deferred Rectal: Deferred Extremities: No calf tenderness, Normal capillary refill, Normal inspection, Normal range of motion, Non-tender, No pedal edema Musculoskeletal : Apperance: Normal Neurologic: Alert, 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 Was a procedure done?: No Differential Diagnosis (SZ) Seizure: N/A Headache: Cluster, Migraine X-Ray, Labs, Meds, VS Vital Signs Date Time Temp Pulse Resp B/P (MAP) Pulse Ox O2 Delivery O2 Flow Rate FiO2 10/05/24 15:15 68 10/05/24 15:13 98.5 68 20 193/46 (95) 99 Lab Test 10/05/24 15:31 10/05/24 15:18 Range/Units White Blood Count 6.9 # 4.4-10.8 10^3/uL Red Blood Count 4.09 4.0-5.20 10^6/uL Hemoglobin 9.8 L 12.2-16.2 g/dL Hematocrit 31.6 L 36.0-46.0 % Mean Corpuscular Volume 77.4 L 80.0-100.0 fL Mean Corpuscular Hemoglobin 23.9 L 28.0-32.0 pg Mean Corpuscular Hemoglobin Concent 30.9 L 32.0-36.0 g/dL Red Cell Distribution Width 16.9 H 11.8-14.3 % Platelet Count 224 140-450 10^3/uL Mean Platelet Volume 9.8 6.9-10.8 fL Neutrophils (%) (Auto) 78.9 37.0-80.0 % Lymphocytes (%) (Auto) 12.6 10.0-50.0 % Monocytes (%) (Auto) 7.5 0.0-12.0 % Eosinophils (%) (Auto) 0.6 0.0-7.0 % Basophils (%) (Auto) 0.4 0.0-2.0 % Neutrophils # (Auto) 5.4 1.6-8.6 10 ^3/uL Lymphocytes # (Auto) 0.9 0.4-5.4 10 ^3/uL Monocytes # (Auto) 0.5 0-1.3 10 ^3/uL Eosinophils # (Auto) 0 0-0.8 10 ^3/uL Basophils # (Auto) 0 0-0.2 10 ^3/uL Nucleated Red Blood Cells 0.0 % Sodium Level 139 136-145 mmol/L Potassium Level 4.0 3.5-5.1 mmol/L Chloride Level 104 98-107 mmol/L Carbon Dioxide Level 26 20-31 mmol/L Anion Gap 9 5-15 Blood Urea Nitrogen 23 9-23 mg/dL Creatinine 0.97 0.550-1.02 mg/dL Glomerular Filtration Rate Calc 59 >90 mL/min BUN/Creatinine Ratio 23.7 H 10.0-20.0 Serum Glucose 97 74-106 mg/dL Calcium Level 10.1 8.7-10.4 mg/dL POC Glucose 96 70-106 mg/dl The patient's CBC shows anemia with a hemoglobin of 9.8 hematocrit of 31.6 The platelets are within normal limits The chemistry panel is within normal limits The patient remained somewhat hypertensive with an elevated systolic The patient was being admitted at this time The patient was diagnosis is accelerated hypertension and autonomic dysfunction Images Reviewed?: Images reviewed and evaluated by me Time of 1ST Reevaluation: 15:30 Reevaluation 1ST: Unchanged Patient Education/Counseling: Diagnosis, Treatment, Prognosis Family Education/Counseling: No Family Present Departure 1 Departure Time of Disposition: 16:34 Impression: Primary Impression: Autonomic dysfunction Additional Impression: Accelerated hypertension Disposition: ADMITTED INPATIENT Admit to: [facility] Condition: Fair Critical Care Note Critical Care Time?: No Stability Stability form required: Yes Unstable for transfer: ED Physician Assesment (Clinical assesment) Heart Score Heart Score: Heart Score Response (Comments) Value History N/A 0 EKG N/A 0 Age N/A 0 Risk Factors N/A 0 Troponin N/A 0 Total 0 I personally scribed for LUÍS FREED MD ([email or web address]) on 10/05/24 at 15:24. Electronically submitted by Eulalia Ivy ([email or web address]). LUÍS FREED MD Oct 05, 2024 15:24
[2024-10-05 15:55] LABS: Basophils # (auto) 0 10 ^3/uL (0-0.2); Basophils % (auto) 0.4 % (0.0-2.0); Eosinophils # (auto) 0 10 ^3/uL (0-0.8); Eosinophils % (auto) 0.6 % (0.0-7.0); Hematocrit 31.6 % (36.0-46.0); Hemoglobin 9.8 g/dL (12.2-16.2); Lymphocytes # (auto) 0.9 10 ^3/uL (0.4-5.4); Lymphocytes % (auto) 12.6 % (10.0-50.0); Mean Corpuscular Hemoglobin 23.9 pg (28.0-32.0); Mean Corpuscular Hgb Conc. 30.9 g/dL (32.0-36.0); Mean Corpuscular Volume 77.4 fL (80.0-100.0); Monocytes # (auto) 0.5 10 ^3/uL (0-1.3); Monocytes % (auto) 7.5 % (0.0-12.0); Neutrophils # (auto) 5.4 10 ^3/uL (1.6-8.6); Neutrophils % (auto) 78.9 % (37.0-80.0); Platelet Count (auto) 224 10^3/uL (140-450); Red Blood Cells 4.09 10^6/uL (4.0-5.20); Red Cell Distribution Width 16.9 % (11.8-14.3); White Blood Cell 6.9 10^3/uL (4.4-10.8)
[2024-10-05 16:02] LABS: Chloride 104 mmol/L (98-107); Sodium 139 mmol/L (136-145)
[2024-10-05 16:03] LABS: Anion Gap 9 (5-15); Carbon Dioxide 26 mmol/L (20-31)
[2024-10-05 16:04] LABS: Calcium 10.1 mg/dL (8.7-10.4)
[2024-10-05 16:08] LABS: Glucose 97 mg/dL (74-106)
[2024-10-05 16:09] LABS: BUN/Creatinine Ratio 23.7 (10.0-20.0); Blood Urea Nitrogen 23 mg/dL (9-23)
--- NOTE | 2024-10-05 22:13 | DVHHPRES ---
History of Present Illness Resident Creating Document: FREDY MCDONALD RESIDENT History of Present Illness 79-year-old female with past medical history of hypertension, diabetes, gastritis, s/p pacemaker, osteoarthritis, who was sent in from her PCP appointment due to hypertensive emergency/urgency. According to the patient, she has been experiencing abdominal pain along with dizziness and a throbbing headache for the last 1 week, she notes eating makes her abdominal pain worse without any relieving factors. She notices dizziness most pronounced on walking and accompanied with a throbbing headache, notes having decreased water intake in the last 1 week, also notes having some dietary indiscretions over the last 1 week along with skip dose of antihypertensive a couple days ago. At the PCP's office patient was noted to have a very high blood pressure for which reason she was sent to the ER. In the ER patient was noted to have a blood pressure of 1 93/46. On review of systems, she is complaining of a productive cough with whitish sputum and palpitations. Hb 9.8, Hct 31.6. Echocardiogram done on 09/20/2024 shows atrial enlargement, mild concentric left ventricular hypertrophy, mild aortic sclerosis, EF 65% and normal RV function with moderate tricuspid regurgitation. Past Medical History hypertension, diabetes, gastritis, s/p pacemaker, osteoarthritis Past Surgical History Cholecystectomy, s/p pacemaker Smoke: No ALCOHOL: none Drugs: None Lives: with Family Review of Systems Constitutional: No: Fever, Chills, Sweats, Weakness, Malaise, Other Eyes: No: Pain, Vision change, Conjunctivae inflammation, Eyelid inflammation, Other, Redness ENT: No: Ear pain, Ear discharge, Nose pain, Nose discharge, Nose congestion, Mouth pain, Mouth swelling, Throat pain, Throat swelling, Other Respiratory: Cough, Sputum; No: Dry, Shortness of breath, SOB with excertion, Wheezing, Hemoptysis, Pleuritic Pain, Wheezing, Other Cardiovascular: Palpitations; No: Chest Pain, Orthopnea, Paroxysmal Noc. Dyspnea, Edema, Lt Headedness, Other Gastrointestinal: No: Nausea, Vomiting, Abdominal Pain, Diarrhea, Constipation, Melena, Hematochezia, Other Genitourinary: No Dysuria, No Frequency, No Incontinence, No Hematuria, No Retention, No Other Musculoskeletal: No: other, neck pain, shoulder pain, arm pain, back pain, hand pain, leg pain, foot pain Skin: No: Rash, Lesions, Jaundice, Bruising, Other Neurological: No: Weakness, Numbness, Incoordination, Change in speech, Confusion, Seizures, Other Allergies: Coded Allergies: Amoxicillin (Unverified Allergy, Unknown, 03/15/18) Codeine (Verified Allergy, Unknown, 05/25/20) Exam Vital Signs Vital Signs Date Time Temp Pulse Resp B/P (MAP) Pulse Ox O2 Delivery O2 Flow Rate FiO2 10/05/24 15:15 68 10/05/24 15:13 98.5 20 193/46 (95) 99 General Appearance: Alert, Oriented X3, Cooperative, No acute distress HEENT: Atraumatic, PERRLA, Other (Dry mucous membranes) Respiratory: Clear to auscultation, Normal air movement Cardiovascular: Regular rate, Normal S1, Normal S2 Abdominal: Normal bowel sounds, Soft, No tenderness Extremities: No clubbing, No cyanosis, Other (1+ lower extremity edema) Skin: No rashes, No significant lesion Neuro: Normal speech, Strength at 5/5 X4 ext, Sensation intact Psych/Mental Status: Mental status NL, Mood NL Labs/Xrays Labs Test 10/05/24 15:31 10/05/24 15:18 Range/Units White Blood Count 6.9 # 4.4-10.8 10^3/uL Red Blood Count 4.09 4.0-5.20 10^6/uL Hemoglobin 9.8 L 12.2-16.2 g/dL Hematocrit 31.6 L 36.0-46.0 % Mean Corpuscular Volume 77.4 L 80.0-100.0 fL Mean Corpuscular Hemoglobin 23.9 L 28.0-32.0 pg Mean Corpuscular Hemoglobin Concent 30.9 L 32.0-36.0 g/dL Red Cell Distribution Width 16.9 H 11.8-14.3 % Platelet Count 224 140-450 10^3/uL Mean Platelet Volume 9.8 6.9-10.8 fL Neutrophils (%) (Auto) 78.9 37.0-80.0 % Lymphocytes (%) (Auto) 12.6 10.0-50.0 % Monocytes (%) (Auto) 7.5 0.0-12.0 % Eosinophils (%) (Auto) 0.6 0.0-7.0 % Basophils (%) (Auto) 0.4 0.0-2.0 % Neutrophils # (Auto) 5.4 1.6-8.6 10 ^3/uL Lymphocytes # (Auto) 0.9 0.4-5.4 10 ^3/uL Monocytes # (Auto) 0.5 0-1.3 10 ^3/uL Eosinophils # (Auto) 0 0-0.8 10 ^3/uL Basophils # (Auto) 0 0-0.2 10 ^3/uL Nucleated Red Blood Cells 0.0 % Sodium Level 139 136-145 mmol/L Potassium Level 4.0 3.5-5.1 mmol/L Chloride Level 104 98-107 mmol/L Carbon Dioxide Level 26 20-31 mmol/L Anion Gap 9 5-15 Blood Urea Nitrogen 23 9-23 mg/dL Creatinine 0.97 0.550-1.02 mg/dL Glomerular Filtration Rate Calc 59 >90 mL/min BUN/Creatinine Ratio 23.7 H 10.0-20.0 Serum Glucose 97 74-106 mg/dL Calcium Level 10.1 8.7-10.4 mg/dL POC Glucose 96 70-106 mg/dl Assessment/Plan Assessment/Plan Hypertensive emergency Hypertensive encephalopathy Hypertensive heart disease - CXR: - p.o. furosemide 20 mg daily, p.o. losartan 50 mg daily - IV hydralazine 10 mg once - resumed home medication metoprolol and hydrochlorothiazide - atorvastatin 40 mg, Plavix 75 mg - echocardiogram 09/20/2024: Technically good study. Sinus rhythm. Left atrial enlargement. Mild concentric LVH. Moderate mitral annular calcification. Decreased excursion of the posterior mitral leaflet. Mild aortic sclerosis. Left ventricular ejection fraction is preserved at 65% with normal RV function. There is moderate tricuspid regurgitation. Moderate mitral insufficiency. Pacing lead noted in RV. Small pericardial effusion not hemodynamically significant. No masses or vegetations noted Symptomatic anemia, hemoglobin 9.8, hematocrit 31.6 - ordered iron panel - ordered stool occult blood - total iron deficit 1256 mg - IV iron sucrose Type 2 diabetes - ordered Hb A1c - current blood glucose 97 - monitor Osteoarthritis - acetaminophen 650 mg as needed for pain Gastritis Hiatal hernia - Protonix 40 mg daily S/p pacemaker - monitor Goals of care: Full code, discussed for >16 minutes on 03/22/24 Plan discussed with patient and patient's daughter, Ms. Angeles Plan discussed with Dr. White Plan discussed with: Patient, Daughter, Other (RN) Date of Service: Oct 05, 2024 Billing Provider: THELMA WHITE MD Common Visit Codes: 43660-AMDLRIE INP/OBS CARE (HIGH) Secondary Visit Codes: 28405-UBCBUFOS CARE PLAN 30 MINUTES FREDY MCDONALD RESIDENT Oct 05, 2024 22:13 THELMA WHITE MD Oct 06, 2024 09:46
[2024-10-05] MEDS ORDERED: ACETAMINOPHEN 325 MG TAB PO PRN (22:15)
[2024-10-05] MEDS ORDERED: NITROGLYCERIN 0.4 MG SL TAB SL PRN (22:15)
--- NOTE | 2024-10-05 22:59 | DVH ---
CHEST RADIOGRAPH Indication: cough Technique: Single frontal view of the chest was obtained Comparison: None FINDINGS: Lines and Tubes: Dual-chamber pacemaker in place with pulse generator over the left chest. Lungs: No focal consolidation. Pleura: No effusion. No pneumothorax. Cardiomediastinal contours: Unremarkable Bones: No acute osseous abnormality. IMPRESSION: 1. No acute cardiopulmonary disease. 2. No acute infiltrates
[2024-10-05 23:32] LABS: INR 0.97 (0.9-1.15); Prothrombin Time 10.3 sec (9.3-11.8)
[2024-10-05 23:36] LABS: % Iron Saturation 6.6 % (15-50)
[2024-10-06] MEDS: LOSARTAN POTASSIUM 50 MG TAB PO ONE (00:59)
[2024-10-06] MEDS: hydroCHLOROthiazide 25 MG TAB PO ONE (01:00)
[2024-10-06] MEDS: ACETAMINOPHEN 325 MG TAB PO ONE (01:07)
[2024-10-06] MEDS: PANTOPRAZOLE 40 MG TAB PO SCH (07:40)
[2024-10-06] MEDS ORDERED: hydrALAZINE HCL 20 MG/ML VL IV PRN (08:30)
[2024-10-06] MEDS: LOSARTAN POTASSIUM 50 MG TAB PO SCH (09:41)
[2024-10-06 09:43] VITALS: PULSE 66; RESP 16; O2SAT 98
[2024-10-06] MEDS ORDERED: LOSARTAN POTASSIUM 50 MG TAB PO SCH (10:00)
[2024-10-06] MEDS: hydroCHLOROthiazide 25 MG TAB PO SCH (10:26)
[2024-10-06] MEDS: FUROSEMIDE 20 MG TAB PO SCH (10:26)
[2024-10-06] MEDS: CLOPIDOGREL BISULFATE 75 MG TAB PO SCH (10:27)
[2024-10-06] MEDS: METOPROLOL SUCCINATE XL 50 MG TAB PO SCH (10:31)
[2024-10-06] MEDS: NIFEdipine ER 30 MG TAB PO ONE (11:15)
--- NOTE | 2024-10-06 11:38 | DVHPNRES ---
Progress Note Date Seen: Oct 06, 2024 Resident Creating Document: ALEE CHAMPAGNE RESIDENT Medical Necessity Reason Pt with a Central, PICC or Fol: No Subjective Review of Systems This is a 79-year-old female with past medical history of hypertension, diabetes, gastritis, s/p pacemaker, osteoarthritis, who was sent in from her PCP appointment due to hypertensive urgency. According to the patient, she has been experiencing abdominal pain along with dizziness and a throbbing headache for the last 1 week, she notes eating makes her abdominal pain worse without any relieving factors. She notices dizziness most pronounced on walking and accompanied with a throbbing headache, notes having decreased water intake in the last 1 week, also notes having some dietary indiscretions over the last 1 week along with skip dose of antihypertensive a couple days ago. At the PCP's office patient was noted to have a very high blood pressure for which reason she was sent to the ER. In the ER patient was noted to have a blood pressure of 193/46. Patient was seen and examined on the bedside. she is alert oriented x3. Complains of throbbing headache and no other active complaints. Constitutional: No: Fever, Chills, Sweats, Weakness, Malaise, Other Eyes: No: Pain, Vision change, Conjunctivae inflammation, Eyelid inflammation, Other, Redness ENT: No: Ear pain, Ear discharge, Nose pain, Nose discharge, Nose congestion, Mouth pain, Mouth swelling, Throat pain, Throat swelling, Other Respiratory: Shortness of breath, improving No: Cough, Dry,Wheezing, Hemoptysis, Pleuritic Pain, Sputum, Wheezing, Other Cardiovascular: No: Chest Pain, Palpitations, Orthopnea, Paroxysmal Noc. Dyspnea, Edema, Lt Headedness, Other Gastrointestinal: No: Nausea, Vomiting, Abdominal Pain, Diarrhea, Constipation, Melena, Hematochezia, Other Musculoskeletal: No: other, neck pain, shoulder pain, arm pain, back pain, hand pain, leg pain, foot pain Neurological:; No: Weakness, Numbness, Incoordination, Change in speech, Confusion, Seizures Objective vital signs Vital Sign Date Time Temp Pulse Resp B/P (MAP) Pulse Ox O2 Delivery O2 Flow Rate FiO2 10/06/24 10:31 70 182/72 10/06/24 10:15 16 100 10/06/24 09:43 Room Air* 0 21 10/06/24 09:42 98.4 98.4 medications Current Medications Medications Dose Ordered Sig/Rebeka Route Start Time Stop Time Status Last Admin Dose Admin Acetaminophen 650 mg Q6HP PRN PO 10/05/24 22:15 Nitroglycerin 0.4 mg Q5MINP PRN SL 10/05/24 22:15 Atorvastatin Calcium 40 mg HS PO 10/06/24 22:00 Clopidogrel Bisulfate 75 mg DAILY PO 10/06/24 10:00 10/06/24 10:27 75 MG Furosemide 20 mg DAILY PO 10/06/24 10:00 10/06/24 10:26 20 MG Hydrochlorothiazide 12.5 mg DAILY PO 10/06/24 10:00 10/06/24 10:26 12.5 MG Pantoprazole Sodium 40 mg DAILY@0600 PO 10/06/24 06:00 10/06/24 07:40 40 MG Iron Sucrose 110 ml @ 110 mls/hr DAILY@1200 IV 10/06/24 12:00 10/10/24 12:59 Hydralazine HCl 10 mg Q6HP PRN IV 10/06/24 08:30 Losartan Potassium 100 mg DAILY PO 10/06/24 08:30 10/06/24 09:41 100 MG Carvedilol 6.25 mg Q12HR PO 10/06/24 22:00 Nifedipine 30 mg DAILY PO 10/07/24 10:00 Examination Physical examination: General Appearance: Alert, Oriented X3, Cooperative, No acute distress HEENT: Atraumatic, PERRLA, EOMI, Mucous membrane moist/pink Respiratory: Clear to auscultation, Normal air movement Cardiovascular: Regular rate, Normal S1, Normal S2, No murmurs, no chest wall tenderness Abdominal: Normal bowel sounds, Soft, No tenderness, No hepatospenomegaly, No masses Extremities: No clubbing, No cyanosis, No edema, Normal pulses, No tenderness/swelling Skin: No rashes, No breakdown, No significant lesion Neuro: Normal gait, Normal speech, Strength at 5/5 X4 ext, Normal tone, Sensation intact, grossly intact cranial nerves. Psych/Mental Status: Mental status NL, Mood NL laboratory and microbiology Laboratory Tests 10/05/24 15:31 Test 10/05/24 15:31 Range/Units Serum Glucose 97 74-106 mg/dL Labs and/or images reviewed: Labs reviewed by me, Image(s) reviewed by me Problem List/Assessment/Plan Problem List/Assessment/Plan Assessment/Plan # Hypertensive urgency # Hypertensive heart disease # Ruled out stroke - CXR: No acute cardiopulmonary diseeases - Head CT showed no acute intracranial abnormality - echocardiogram 09/20/2024: Technically good study. Sinus rhythm. Left atrial enlargement. Mild concentric LVH. Moderate mitral annular calcification. Decreased excursion of the posterior mitral leaflet. Mild aortic sclerosis. Left ventricular ejection fraction is preserved at 65% with normal RV function. There is moderate tricuspid regurgitation. Moderate mitral insufficiency. Pacing lead noted in RV. Small pericardial effusion not hemodynamically significant. No masses or vegetations noted - Losartan 100 mg daily, furosemide 20 mg daily, carvedilol 6.25 mg b.i.d., nifedipine 30 mg daily and hydralazine 10 mg IV q.6 p.r.n. - Plavis 75 mg daily and atorvastatin 40 mg at HS # Symptomatic anemia, hemoglobin 9.8, hematocrit 31.6 - Iron panel low iron, high TIBC, low saturation and low ferritin - Ordered stool occult blood - Total iron deficit 1256 mg - IV iron sucrose daily # Type 2 diabetes, HbA1C 5.7 - monitor # Osteoarthritis - Acetaminophen 650 mg as needed for pain # GERD - Protonix 40 mg daily # S/p pacemaker - monitor Disposition: Telemetry Diet : Low sodium and consistent carbohydrate diet DVT prophylaxis: 40 mg sc daily Goal of care discussed with the patient for more than 20 minutes full code Plan discussed with Dr. Jung Plan discussed with: Patient, Other My Orders My Orders Orders - ALEE CHAMPAGNE Procedure Category Date Status Time Hydralazine Injection PHA 10/06/24 In Process (Apresoline Inject 08:30 Carvedilol Tablet PHA 10/06/24 In Process (Coreg Tablet) 22:00 Nifedipine Er PHA 10/07/24 In Process (Procardia Xl 10:00 Date of Service: Oct 06, 2024 Billing Provider: LUCRETIA FERNANDEZ MD Common Visit Codes: 15688-[id number] INP/OBS CARE(HIGH) ALEE CHAMPAGNE Oct 06, 2024 11:38 LUCRETIA FERNANDEZ MD Oct 10, 2024 09:38
[2024-10-06] MEDS ORDERED: IRON SUCROSE COMPLEX 110 ML IV SCH (12:00)
--- NOTE | 2024-10-06 12:07 | DVH ---
CT HEAD WITHOUT CONTRAST INDICATION: Hypertensive urgency with dizziness EXAM DATE: 10/06/2024 11:51 AM COMPARISON: None RADIATION DOSE: CTDIvol: 51.28 mGy, DLP: 805.54 mGy*cm PROCEDURE: CT scans of the head were obtained from the vertex to the skull base. Sagittal and coronal reconstructions were provided. All CT scans at this medical facility are performed using dose modulation techniques as appropriate t o a performed exam including the following: Automated exposure control was utilized; adjustment of th e MA and/or KV according to patient size; and use of iterative reconstruction technique. FINDINGS: There is sulcal and ventricular prominence. The brainshows normal morphology and banks-whi te matter differentiation, without intracranial hemorrhage, extra-axial fluid collection, mass effect or acute large vessel infarct. The ventricles are normal in size. The basal cisterns are patent. The skull and visible facial bones are intact. The paranasal sinuses, mastoid air cells and middle ear c avities are well-aerated. The soft tissues of the scalp are unremarkable. IMPRESSION: No acute intracranial abnormality.
--- NOTE | 2024-10-06 14:13 | DVH ---
Carotid Duplex Date: 10/06/2024 01:40 PM Clinical History: Dizziness Comparison: US CAROTID DUPLX W COLOR DOP on DOS: 10/07/23, US CAROTID DUPLX W COLOR DOP on DOS: 3 Technique: Duplex Doppler evaluation of the extracranial carotid and vertebral arteries including color Doppler and spectral/pulsed waveform analysis was performed. Findings: RIGHT SIDE: The peak systolic velocities are 89 cm/s in the distal CCA and 119 cm/s in the proximal ICA.The ICA/C CA ratio is 1.3. The external carotid artery is patent with peak systolic velocity of 145 cm/s proximally. There is appropriate antegrade flow in the right vertebral artery. LEFT SIDE: The peak systolic velocities are 122 cm/s in the distal CCA and 178 cm/s in the proximal ICA.. The I CA/CCA ratio is 1.4. The external carotid artery is patent with peak systolic velocity of 174 cm/s proximally. There is appropriate antegrade flow in the left vertebral artery. IMPRESSION: No hemodynamically significant stenosis noted in the right carotid system. No hemodynamically significant stenosis noted in the left carotid system. Reference: Radiology 2003; 229:[id number]
[2024-10-06 16:44] VITALS: BP 140/61; PULSE 73; RESP 17; TEMP 98.2; O2SAT 95
[2024-10-06 16:54] VITALS: BP 140/61; PULSE 73; PULSE 75; RESP 17; TEMP 98.2; O2SAT 95
[2024-10-06 20:00] VITALS: PULSE 64; PULSE 70; RESP 17; O2SAT 98
[2024-10-06 20:03] LABS: Alanine Aminotransferase 14 U/L (7-40); Albumin 4.4 g/dL (3.2-4.8); Alkaline Phosphatase 96 U/L (46-116); Anion Gap 10 (5-15); Aspartate Aminotransferase 18 U/L (13-40); BUN/Creatinine Ratio 17.7 (10.0-20.0); Bilirubin, Total 0.6 mg/dL (0.2-1.0); Blood Urea Nitrogen 22 mg/dL (9-23); Calcium 9.9 mg/dL (8.7-10.4); Carbon Dioxide 25 mmol/L (20-31); Chloride 105 mmol/L (98-107); Sodium 140 mmol/L (136-145); Total Protein 6.8 g/dL (5.7-8.2)
[2024-10-06 20:09] LABS: Glucose 141 mg/dL (74-106); Potassium 3.4 mmol/L (3.5-5.1)
[2024-10-06 21:00] VITALS: BP 132/52; PULSE 70; RESP 17; TEMP 97.7; O2SAT 98
[2024-10-06] MEDS: ATORVASTATIN 20 MG TAB PO SCH (22:22)
[2024-10-06] MEDS: CARVEDILOL 3.125 MG TAB PO SCH (22:26)
[2024-10-07 01:00] VITALS: BP 122/60; PULSE 67; RESP 16; TEMP 98.2; O2SAT 98
[2024-10-07 05:00] VITALS: BP 127/52; PULSE 70; RESP 16; TEMP 97.9; O2SAT 95
[2024-10-07 05:34] LABS: Basophils # (auto) 0.1 10 ^3/uL (0-0.2); Eosinophils # (auto) 0.1 10 ^3/uL (0-0.8); Hematocrit 27.6 % (36.0-46.0); Hemoglobin 8.9 g/dL (12.2-16.2); Lymphocytes # (auto) 0.7 10 ^3/uL (0.4-5.4); Lymphocytes % (auto) 14.7 % (10.0-50.0); Mean Corpuscular Hemoglobin 24.3 pg (28.0-32.0); Mean Corpuscular Hgb Conc. 32.2 g/dL (32.0-36.0); Mean Corpuscular Volume 75.7 fL (80.0-100.0); Monocytes # (auto) 0.4 10 ^3/uL (0-1.3); Monocytes % (auto) 8.7 % (0.0-12.0); Neutrophils # (auto) 3.6 10 ^3/uL (1.6-8.6); Neutrophils % (auto) 73.6 % (37.0-80.0); Platelet Count (auto) 206 10^3/uL (140-450); Red Blood Cells 3.64 10^6/uL (4.0-5.20); Red Cell Distribution Width 16.5 % (11.8-14.3); White Blood Cell 4.9 10^3/uL (4.4-10.8)
[2024-10-07 08:00] VITALS: PULSE 61; PULSE 78; RESP 20; O2SAT 97
[2024-10-07 08:54] VITALS: BP 148/49; PULSE 78; RESP 20; TEMP 98; O2SAT 97
[2024-10-07] MEDS: POTASSIUM EFFERVESENT TAB 25 MEQ PO ONE (09:16)
[2024-10-07] MEDS: NIFEdipine ER 30 MG TAB PO SCH (09:16)
--- NOTE | 2024-10-07 09:35 | ECG ---
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
[2024-10-07] MEDS ORDERED: LOSA-534 PO (11:34)
[2024-10-07] MEDS ORDERED: PANT40TA2 PO (11:34)
[2024-10-07] MEDS ORDERED: CARV6.2551 PO (11:34)
[2024-10-07] MEDS ORDERED: NIFE1TAB31 PO (11:34)
[2024-10-07] MEDS ORDERED: HYDR25TA4 PO (11:34)
[2024-10-07] MEDS ORDERED: CLOP75TA70 PO (11:36)
[2024-10-07] MEDS ORDERED: ATOR40TA52 PO (11:36)
--- NOTE | 2024-10-07 11:39 | DVHDSRES ---
Discharge Summary Date of Admission Resident Creating Document: ALEE CHAMPAGNE RESIDENT Oct 05, 2024 at 22:10 Date of Discharge: Oct 07, 2024 Admitting Diagnosis Hypertensive emergency Hypertensive encephalopathy Wounds: No wound was present Labs/Diagnostic Data: Laboratory Results Test 10/07/24 05:18 10/06/24 08:35 10/05/24 23:07 10/05/24 15:18 White Blood Count 4.9 10^3/uL (4.4-10.8) Red Blood Count 3.64 10^6/uL (4.0-5.20) Hemoglobin 8.9 g/dL (12.2-16.2) Hematocrit 27.6 % (36.0-46.0) Mean Corpuscular Volume 75.7 fL (80.0-100.0) Mean Corpuscular Hemoglobin 24.3 pg (28.0-32.0) Mean Corpuscular Hemoglobin Concent 32.2 g/dL (32.0-36.0) Red Cell Distribution Width 16.5 % (11.8-14.3) Platelet Count 206 10^3/uL (140-450) Mean Platelet Volume 9.8 fL (6.9-10.8) Neutrophils (%) (Auto) 73.6 % (37.0-80.0) Lymphocytes (%) (Auto) 14.7 % (10.0-50.0) Monocytes (%) (Auto) 8.7 % (0.0-12.0) Eosinophils (%) (Auto) 2.0 % (0.0-7.0) Basophils (%) (Auto) 1.0 % (0.0-2.0) Neutrophils # (Auto) 3.6 10 ^3/uL (1.6-8.6) Lymphocytes # (Auto) 0.7 10 ^3/uL (0.4-5.4) Monocytes # (Auto) 0.4 10 ^3/uL (0-1.3) Eosinophils # (Auto) 0.1 10 ^3/uL (0-0.8) Basophils # (Auto) 0.1 10 ^3/uL (0-0.2) Nucleated Red Blood Cells 0.0 % Sodium Level 140 mmol/L (136-145) Potassium Level 3.4 mmol/L (3.5-5.1) Chloride Level 105 mmol/L (98-107) Carbon Dioxide Level 25 mmol/L (20-31) Anion Gap 10 (5-15) Blood Urea Nitrogen 22 mg/dL (9-23) Creatinine 1.24 mg/dL (0.550-1.02) Glomerular Filtration Rate Calc 44 mL/min (>90) BUN/Creatinine Ratio 17.7 (10.0-20.0) Serum Glucose 141 mg/dL (74-106) Calcium Level 9.9 mg/dL (8.7-10.4) Ferritin 4.6 ng/mL (10-291) Total Bilirubin 0.6 mg/dL (0.2-1.0) Aspartate Amino Transferase (AST) 18 U/L (13-40) Alanine Aminotransferase (ALT) 14 U/L (7-40) Alkaline Phosphatase 96 U/L (46-116) Total Protein 6.8 g/dL (5.7-8.2) Albumin 4.4 g/dL (3.2-4.8) Vitamin D 25-Hydroxy 65.1 ng/mL (30.0-100) Prothrombin Time 10.3 sec (9.3-11.8) Prothrombin Time INR 0.97 (0.9-1.15) Hemoglobin A1c 5.7 % A1C (<5.7) Iron Level 30 ug/dL (50-170) Total Iron Binding Capacity 454 ug/dL (250-425) Percent Iron Saturation 6.6 % (15-50) B-Type Natriuretic Peptide 207.01 pg/mL (0-100) POC Glucose 96 mg/dl (70-106) Other Laboratory Tests 10/07/24 05:18 10/06/24 08:35 Brief Hx & Hospital Course: This is a 79-year-old female with past medical history of hypertension, diabetes, gastritis, s/p pacemaker, osteoarthritis, who was sent in from her PCP appointment due to hypertensive urgency. According to the patient, she has been experiencing abdominal pain along with dizziness and a throbbing headache for the last 1 week, she notes eating makes her abdominal pain worse without any relieving factors. She notices dizziness most pronounced on walking and accompanied with a throbbing headache, notes having decreased water intake in the last 1 week, also notes having some dietary indiscretions over the last 1 week along with skip dose of antihypertensive a couple days ago. At the PCP's office patient was noted to have a very high blood pressure for which reason she was sent to the ER. In the ER patient was noted to have a blood pressure of 193/46. Hospital course: Initial CXR: No acute cardiopulmonary diseeases ,Head CT showed no acute intracranial abnormality , echo revealed ejection fraction 65% with normal RV function on 0 03/2025. Blood pressure was controlled with losartan 100 mg daily, carvedilol 6.25 mg b.i.d., nifedipine 30 mg daily and continuation of the patient's home medication hydrochlorothiazide 12.5 mg daily. Patient was also treated with Plavix 75 mg daily and atorvastatin 40 mg at HS. Today morning blood pressure was 145/51 . Discharge plan was discussed with t p.o. daily, patient and all questions answered. Patient is being discharged to home. Discharge diagnosis: # Hypertensive urgency # Hypertensive heart disease # Ruled out stroke # Symptomatic anemia, hemoglobin 9.8, hematocrit 31.6 # Type 2 diabetes, HbA1C 5.7 # Osteoarthritis # GERD # S/p pacemaker Discharge plan: Discharge disposition: Home Medications : Losartan 100 mg daily, carvedilol 6.25 mg b.i.d., nifedipine 30 mg daily, clopidogrel 75 mg daily, atorvastatin 40 mg at HS and pantonix 40 mg daily. Follow up : PCP in 1 week. Consults/Reason for consult No consultation was done Operations or Procedures CHEST RADIOGRAPH Indication: cough Technique: Single frontal view of the chest was obtained Comparison: None FINDINGS: Lines and Tubes: Dual-chamber pacemaker in place with pulse generator over the left chest. Lungs: No focal consolidation. Pleura: No effusion. No pneumothorax. Cardiomediastinal contours: Unremarkable Bones: No acute osseous abnormality. IMPRESSION: 1. No acute cardiopulmonary disease. 2. No acute infiltrates CT HEAD WITHOUT CONTRAST INDICATION: Hypertensive urgency with dizziness EXAM DATE: 10/06/2024 11:51 AM COMPARISON: None RADIATION DOSE: CTDIvol: 51.28 mGy, DLP: 805.54 mGy*cm PROCEDURE: CT scans of the head were obtained from the vertex to the skull base. Sagittal and coronal reconstructions were provided. All CT scans at this medical facility are performed using dose modulation techniques as appropriate to a performed exam including the following: Automated exposure control was utilized; adjustment of the MA and/or KV according to patient size; and use of iterative reconstruction technique. FINDINGS: There is sulcal and ventricular prominence. The brainshows normal morphology and banks-white matter differentiation, without intracranial hemorrhage, extra-axial fluid collection, mass effect or acute large vessel infarct. The ventricles are normal in size. The basal cisterns are patent. The skull and visible facial bones are intact. The paranasal sinuses, mastoid air cells and middle ear cavities are well-aerated. The soft tissues of the scalp are unremarkable. IMPRESSION: No acute intracranial abnormality. Condition at Discharge: Stable Final Diagnosis/Problems List # Hypertensive urgency # Ruled out hypertensive emergency and hypertensive encephalopathy # Hypertensive heart disease # Ruled out stroke # Symptomatic anemia, hemoglobin 9.8, hematocrit 31.6 # Type 2 diabetes, HbA1C 5.7 # Osteoarthritis # GERD # S/p pacemaker Discharge Disposition: Home Discharge Instruct/Medications Diet: Cardiac 2g Na,low cholest Activity: No Restrictions, As Tolerated Follow Up/Referral: Follow up with DC clinic in 1 week. Follow up with PCP in 1 week. Medications: Same as EMR Discharge Statement: "Patient was advised to return to the ER or call 911 if any headaches, dizziness, shortness of breath, chest pain, abdominal pain, bleeding, fevers, or worsening of medical condition. Patient was counseled about treatment plan, medications, possible side effects, patientverbalized understanding. All questions were answered to the best of my ability. This discharge took greater then 30 minutes in planning, reviewing documentation, counseling the patient, and discussing with other team members." ASSESSMENT ASSESSMENT Assessment # Hypertensive urgency # Hypertensive heart disease # Ruled out stroke # Symptomatic anemia, hemoglobin 9.8, hematocrit 31.6 # Type 2 diabetes, HbA1C 5.7 # Osteoarthritis # GERD # S/p pacemaker Date of Service: Oct 07, 2024 Billing Provider: LUCRETIA FERNANDEZ MD Common Visit Codes: 47858-PNX/OBS DISCH DAY >30min ALEE CHAMPAGNE RESIDENT Oct 07, 2024 11:39 LUCRETIA FERNANDEZ MD Oct 11, 2024 09:49
[2024-10-07 12:03] VITALS: BP 145/51; PULSE 78; RESP 20; TEMP 98; O2SAT 97
[2024-10-07] MEDS: IRON SUCROSE COMPLEX 110 ML IV SCH (12:33)
[2024-10-07 13:00] VITALS: BP 123/41; PULSE 70; RESP 18; TEMP 97.9; O2SAT 97
== END 2024-10-07 13:58 | disposition home or self-care (01) | DRG 305 ==
LOC: ER 14:45 → TELE 22:10 → TELE-CENTR 22:13
PROVIDERS: ADMIT Student in an Organized Health Care Education/Training Program; ATTEND Student in an Organized Health Care Education/Training Program
DX: I16.0 Hypertensive urgency (principal); D64.9 Anemia, unspecified; G90.9 Disorder of the autonomic nervous system, unspecified; E11.9 Type 2 diabetes mellitus without complications; K44.9 Diaphragmatic hernia without obstruction or gangrene; I11.9 Hypertensive heart disease without heart failure; M19.90 Unspecified osteoarthritis, unspecified site; K21.9 Gastro-esophageal reflux disease without esophagitis; Z90.49 Acquired absence of other specified parts of digestive tract; Z95.0 Presence of cardiac pacemaker; Z88.1 Allergy status to other antibiotic agents; Z88.5 Allergy status to narcotic agent
CPT/HCPCS: 36415; 70450; 71045; 80048; 80053; 80061; 82306; 82728; 82962; 83036; 83540; 83550; 83880; 84439; 84443; 84481; 85025; 85610; 93005; 93886; G0378; J1756

== ENCOUNTER → 2024-11-10 | Outpatient (CLI) | payer MEDICARE, MEDICAID ==
[~2024-11-10] MED LIST changes: +ATOR40TA52 PO; +CARV6.2551 PO; +CLOP75TA70 PO; +LOSA-534 PO; -METO-289 PO; +NIFE1TAB31 PO; -NITR-87 PO; +PANT40TA2 PO
== END | disposition home or self-care (01) ==
LOC: Rad HDHVI 10:27
PROVIDERS: ATTEND Internal Medicine Cardiovascular Disease
DX: I10 Essential (primary) hypertension (principal); I25.10 Atherosclerotic heart disease of native coronary artery without angina pectoris
CPT/HCPCS: 93306

== ENCOUNTER → 2024-11-14 | Outpatient (CLI) | payer MEDICARE, MEDICAID ==
[~2024-11-14] VITALS: Ht 157.5 cm; Wt 76.2 kg
[~2024-11-14] MED LIST changes: +ADENOSINE 64 MG in GIVE UN-DILUTED 0 ML IV ONE; +ADENOSINE 90 MG/30 ML INJ IV ONE
== END | disposition home or self-care (01) ==
LOC: Rad HDHVI 14:13
PROVIDERS: ATTEND Internal Medicine Cardiovascular Disease
DX: I25.10 Atherosclerotic heart disease of native coronary artery without angina pectoris (principal); I11.0 Hypertensive heart disease with heart failure; I50.33 Acute on chronic diastolic (congestive) heart failure; I49.5 Sick sinus syndrome; R42 Dizziness and giddiness; E11.65 Type 2 diabetes mellitus with hyperglycemia; E78.00 Pure hypercholesterolemia, unspecified; Z95.0 Presence of cardiac pacemaker; Z82.49 Family history of ischemic heart disease and other diseases of the circulatory system
CPT/HCPCS: 78452; 93005; A9500; J0153; 96374; 96375

== ENCOUNTER → 2025-01-18 | Outpatient (CLI) | payer MEDICARE, MEDICAID ==
[~2025-01-18] MED LIST changes: -ADENOSINE 64 MG in GIVE UN-DILUTED 0 ML IV ONE; -ADENOSINE 90 MG/30 ML INJ IV ONE
[2025-01-18 09:23] LABS: Urine Blood TRACE /uL (Negative); Urine Clarity Clear (Clear); Urine Color Light-Yellow (Yellow); Urine Protein, UAD Negative (Negative); Urine Specific Gravity 1.017 (1.001-1.035); Urine Urobilinogen Normal (Negative); Urine pH 7.5 (5.0-9.0)
[2025-01-18 09:24] LABS: Basophils # (auto) 0 10 ^3/uL (0-0.2); Basophils % (auto) 0.9 % (0.0-2.0); Eosinophils # (auto) 0.1 10 ^3/uL (0-0.8); Eosinophils % (auto) 2.7 % (0.0-7.0); Hematocrit 36.5 % (36.0-46.0); Hemoglobin 11.8 g/dL (12.2-16.2); Lymphocytes # (auto) 1.3 10 ^3/uL (0.4-5.4); Lymphocytes % (auto) 29.5 % (10.0-50.0); Mean Corpuscular Hgb Conc. 32.3 g/dL (32.0-36.0); Mean Corpuscular Volume 80.6 fL (80.0-100.0); Monocytes # (auto) 0.4 10 ^3/uL (0-1.3); Neutrophils # (auto) 2.5 10 ^3/uL (1.6-8.6); Neutrophils % (auto) 57.9 % (37.0-80.0); Nucleated Red Blood Cells % 0.1 %; Platelet Count (auto) 177 10^3/uL (140-450); Red Blood Cells 4.52 10^6/uL (4.0-5.20); Red Cell Distribution Width 17.5 % (11.8-14.3); White Blood Cell 4.3 10^3/uL (4.4-10.8)
[2025-01-18 10:13] LABS: Alanine Aminotransferase 18 U/L (7-40); Albumin 4.2 g/dL (3.2-4.8); Alkaline Phosphatase 112 U/L (46-116); Anion Gap 7 (5-15); Aspartate Aminotransferase 17 U/L (13-40); BUN/Creatinine Ratio 26.5 (10.0-20.0); Bilirubin, Total 0.4 mg/dL (0.2-1.0); Blood Urea Nitrogen 22 mg/dL (9-23); Calcium 9.8 mg/dL (8.7-10.4); Carbon Dioxide 28 mmol/L (20-31); Chloride 106 mmol/L (98-107); Potassium 4.2 mmol/L (3.5-5.1); Sodium 141 mmol/L (136-145); Total Protein 7.1 g/dL (5.7-8.2)
[2025-01-18 10:17] LABS: Bilirubin, Direct < 0.1 mg/dL (<0.3); Cholesterol 207 mg/dL (< 200); Glucose 107 mg/dL (74-106); HDL Cholesterol 64 mg/dL (40-59); LDL Cholesterol 122 mg/dL (< 100); Triglycerides 160 mg/dL (< 150)
== END | disposition home or self-care (01) ==
LOC: LAB 08:40
PROVIDERS: ATTEND Internal Medicine Cardiovascular Disease
DX: I10 Essential (primary) hypertension (principal); E11.9 Type 2 diabetes mellitus without complications; E55.9 Vitamin D deficiency, unspecified; D64.9 Anemia, unspecified; R00.2 Palpitations; R30.0 Dysuria
CPT/HCPCS: 36415; 80048; 80061; 80076; 81003; 82306; 83036; 84443; 85025

== ENCOUNTER 2025-05-30 08:08 | Outpatient (CLI) | payer MEDICARE, MEDICAID ==
[2025-05-30 08:41] LABS: Urine Protein, UAD Negative (Negative)
[2025-05-30 09:01] LABS: Alanine Aminotransferase 15 U/L (7-40); Albumin 4.1 g/dL (3.2-4.8); Alkaline Phosphatase 93 U/L (46-116); Anion Gap 7 (5-15); BUN/Creatinine Ratio 16.7 (10.0-20.0); Bilirubin, Direct 0.1 mg/dL (<0.3); Bilirubin, Total 0.6 mg/dL (0.2-1.0); Blood Urea Nitrogen 13 mg/dL (9-23); Calcium 9.3 mg/dL (8.7-10.4); Carbon Dioxide 27 mmol/L (20-31); Cholesterol 195 mg/dL (< 200); Glucose 99 mg/dL (74-106); Potassium 3.8 mmol/L (3.5-5.1); Sodium 143 mmol/L (136-145); Total Protein 7.0 g/dL (5.7-8.2); Triglycerides 113 mg/dL (< 150)
[2025-05-30 09:02] LABS: Chloride 109 mmol/L (98-107); HDL Cholesterol 61 mg/dL (40-59)
[2025-05-30 09:03] LABS: Hematocrit 35.0 % (36.0-46.0); Hemoglobin 11.7 g/dL (12.2-16.2); Mean Corpuscular Hemoglobin 28.8 pg (28.0-32.0); Mean Corpuscular Volume 86.0 fL (80.0-100.0); Nucleated Red Blood Cells % 0.1 %
[2025-05-30 09:18] LABS: Uric Acid 5.3 mg/dL (3.1-7.8)
== END 2025-05-30 17:00 | disposition home or self-care (01) ==
LOC: LAB 08:08
PROVIDERS: ATTEND Internal Medicine Cardiovascular Disease
DX: I10 Essential (primary) hypertension (principal); E11.9 Type 2 diabetes mellitus without complications; E55.9 Vitamin D deficiency, unspecified; D64.9 Anemia, unspecified; R00.2 Palpitations; R30.0 Dysuria
CPT/HCPCS: 36415; 80048; 80061; 80076; 81003; 83036; 84443; 84550; 85025